=== PATIENT | male | born 1960 | race Caucasian/White ===

== ENCOUNTER 2017-05-04 09:19 | Day surgery (SDC) | payer OTHER ==
[~2017-05-04 09:19] MED LIST: BYSTOLIC10 MG PO
[2017-05-04 10:44] LABS: HEMATOCRIT 46.7 % (42.0-54.0); HEMOGLOBIN 15.9 g/dL (13.5-17.5); MCH 28.4 pg (26.0-34.0); MCV 83.5 fL (80.0-100.0); MEAN PLATELET VOLUME 10.1 fL (7.4-10.4); RBC 5.59 10x6/uL (4.20-6.10); RDW 12.7 % (11.5-14.5); WBC 6.4 10x3/uL (4.8-10.8)
[2017-05-04 11:14] VITALS: BP 160/98; BMI 29.7
--- NOTE | 2017-05-07 14:00 | OP ---
PATIENT NAME: CARL ENRIQUEZ MEDICAL RECORD: [id number] :56 LOCATION:D.OPS ADMISSION DATE: SURGEON: HERRERA BARRON MD DATE OF OPERATION: 05/04/2017 PREOPERATIVE DIAGNOSIS: Large carpeting polyp of the ascending colon, 6 cm. POSTOPERATIVE DIAGNOSES: Large carpeting polyp of the ascending colon, 6 cm, with inability to endoscopically remove the polyp in its entirety. PROCEDURES: 1. Total colonoscopy to cecum. 2. Piecemeal attempted polypectomy. 3. Ablation of most of the polyp with the argon plasma roundhouse firer/fireman. 4. Endoscopic tattooing distal to the site of the polyp. SURGEON: Herrera Barron MD CUSTOMS INVESTIGATOR: None. BLOOD LOSS: Minimal. ANESTHESIA: General. COMPLICATIONS: None. The risks, possible complications, and alternatives to the procedure were explained to the patient. He elects to proceed. OPERATIVE COURSE: The patient was conveyed to the operating room electively on 05/04/2017. General anesthesia was induced by the anesthesia staff. The patient was placed in the Borges position. A digital rectal examination was performed. Prostate was enlarged, but without nodules. The colonoscope was inserted through the anus. It was easily advanced to the cecum. The prep was excellent. I slowly withdrew the endoscope. I irrigated and aspirated extensively. The pullback was greater than a 18-minute pullback. The polyp was easily identifiable. It encompassed more than a third of the circumference of the colon. I started to perform a piecemeal polypectomy utilizing the cold endoscopic biopsy forceps. I encountered a cratered area that was very firm at the center of the polyp. This is concerning for a malignancy. I feared that if I tried to remove the entire polyp, this will have led to an endoscopic perforation. I then utilized the argon plasma roundhouse firer/fireman and ablated as much of the polyp as I could and also this was used for hemorrhage control. A right colon polyp was ablated utilizing the right colon setting on the argon plasma roundhouse firer/fireman in the forced mode. I then advanced an endoscopic sclerotherapy needle. Distal to the polyp, I injected 5 cc of Glenna ink submucosally. I then removed the sclerotherapy needle and slowly withdrew the endoscope. I irrigated and aspirated extensively. A retroflexed view was obtained in the rectum. I then unretroflexed the scope and removed it under direct vision. I will see the patient in my office in 1 week. I will plan for a segmental colectomy sometime in the near future. I have shown the endoscopic pictures to the patient's . The patient was conveyed to postanesthesia care unit where OPERATIVE REPORT [id number] CARL ENRIQUEZ he was in stable condition. TRANSINT:[id number] Voice Confirmation ID: [id number] DOCUMENT ID: [id number] HERRERA BARRON MD at 1400 CC: AMBAR GUILLEN MD and VIOLETA MACIAS MD [id number] DICTATION DATE: 05/04/17 1549 STEEL ERECTOR APPRENTICE: 05/04/17 1908 [facility] [place] 05/04/17 [id number] [place] [address]
--- NOTE | 2017-06-23 15:43 | HP ---
PATIENT: CARL ENRIQUEZ MEDICAL RECORD: [id number] ACCOUNT: [id number] LOCATION:[facility] : 56 ADMISSION DATE: 05/04/17 HISTORY AND PHYSICAL EXAMINATION CHIEF COMPLAINT: Carpeting polyp of the ascending colon. HISTORY OF PRESENT ILLNESS: The patient was referred by Dr. Hebert. The risks, possible complications, and alternatives to polypectomy utilizing argon plasma installer inspector final were explained to the patient. He elects to proceed. PAST MEDICAL AND SURGICAL HISTORY: Sleep apnea, on CPAP, hypertension, gastroesophageal reflux, knee surgery, nose surgery for deviated septum/broken nose. ALLERGIES: No known drug allergies. HOME MEDICINES: Pepcid, Valium, Tylenol as well as nebivolol. REVIEW OF SYSTEMS: Negative for CVA or seizures. Negative for diabetes or thyroid problems. PHYSICAL EXAMINATION: GENERAL: The patient does not appear acutely ill. He does not appear chronically ill. VITAL SIGNS: Reviewed. HEAD: External ears appear normal. EYES: Extraocular movements are intact. NECK: Trachea is midline. CHEST: No intercostal retractions. PULMONARY: Nonlabored, no stridor. ABDOMEN: Nontender. IMPRESSION: Large carpeting polyp of the ascending colon. PLAN: Colonoscopy. Polypectomy utilizing the argon plasma installer inspector final. TRANSINT:[id number] Voice Confirmation ID: [id number] DOCUMENT ID: [id number] HERRERA BARRON MD at 1543 CC: [id number] DICTATION DATE: 06/09/17 0839 MACHINE CHAIN MAKER: 06/09/17 0942 [facility] [place] [facility] 05/04/[address] [address]
== END 2017-05-04 16:00 | disposition home or self-care (01) ==
LOC: D.OPS 09:19 → D.PAN 12:00 → D.OPS 12:00
PROVIDERS: Anesthesiology
DX: D12.2 Benign neoplasm of ascending colon (principal); N40.0 Benign prostatic hyperplasia without lower urinary tract symptoms; Z01.812 Encounter for preprocedural laboratory examination

== ENCOUNTER 2017-06-09 06:22 | Inpatient (IN) | payer OTHER ==
[2017-06-09] VITALS (11 sets, daily range): BP systolic 128–156; BP diastolic 72–95; BMI 28.4
[~2017-06-09] VITALS: Ht 185.4 cm; Wt 97.5 kg
[2017-06-09 07:06] LABS: HEMATOCRIT 43.1 % (42.0-54.0); HEMOGLOBIN 14.6 g/dL (13.5-17.5); MCH 28.4 pg (26.0-34.0); MCHC 33.9 g/dL (31.0-37.0); MCV 83.9 fL (80.0-100.0); MEAN PLATELET VOLUME 10.1 fL (7.4-10.4); RBC 5.14 10x6/uL (4.20-6.10); RDW 12.7 % (11.5-14.5); WBC 4.5 10x3/uL (4.8-10.8)
[2017-06-10 04:00] VITALS: BP 123/76
--- NOTE | 2017-06-10 07:50 | NUR ---
PT AOX4 RESP EVEN AND NONLABORED PT DENIES NEEDS AT THIS TIME IV TO LEFT HAND PATENT AND INTACT AT THIS TIME SRX2 BED AT LOWEST SETTING CALL LIGHT WITHIN REACH WILL CONTINUE TO MONITOR
[2017-06-10 08:36] VITALS: BP 130/78
[2017-06-10 13:07] VITALS: Ht 185.4 cm; Wt 97.5 kg
[2017-06-10 14:20] VITALS: BP 127/76
[2017-06-10 16:23] VITALS: BP 135/81
[2017-06-10 20:00] VITALS: BP 141/87
--- NOTE | 2017-06-10 20:00 | NUR ---
ASSESSMENT PER FLOWSHEET. EPIDURAL IN PLACE AND IN USE WITH GOOD PAIN CONTROL. BANDAIDES TO ABDOMEN C/D/I 3 SMALL AND ONE LARGE.GREENBERG TO BEDSIDE DRAINAGE WITH YELLOW URINE. IV PATENT LEFT HAND OF NS AT 100CC'S/HR. SITE CLEAR. SCD'S ON.
--- NOTE | 2017-06-10 22:00 | NUR ---
RESTING QUIETLY DENIES NEEDS.
[2017-06-11] VITALS: BP 132/78
--- NOTE | 2017-06-11 00:10 | NUR ---
EYES CLOSED RESPIRATIONS WITH EASE AND UNLABORED.
--- NOTE | 2017-06-11 03:00 | NUR ---
RESTING QUIETLY NO CHANGES IN ASSESSMENT.
--- NOTE | 2017-06-11 06:31 | NUR ---
RESTING QUIETLY DENIES PAIN BODY IN GOOD ALIGNMENT. NO CHANGES IN ASSESSMENT
--- NOTE | 2017-06-11 07:40 | NUR ---
PATIENT RESTING IN THE BED. PATIENT IS AWAKE, ALERT, AND ORIENTED X4. AT PATIENT'S BEDSIDE. NO COMPLAINTS OF PAIN AT PRESENT TIME. IV PATENT IN LEFT HAND WITHOUT ANY S/S OF INFECTION NOTED. NS INFUSING AT 100 ML/HR. DR. BARRON STOPPED BY TO VISIT WITH PATIENT AND STATED THAT HIS EPIDURAL AND GREENBERG CATHETER CAN COME OUT TOMORROW. CALL LIGHT IN PATIENT'S REACH. PATIENT DENIES ANY NEEDS AT PRESENT TIME. WILL MONITOR PATIENT FOR ANY NEEDS.
[2017-06-11 09:07] VITALS: BP 139/83
--- NOTE | 2017-06-11 10:20 | NUR ---
PATIENT RESTING IN THE BED. AT PATIENT'S BEDSIDE. NEW ORDER RECEIVED AND SCHEDULED BYSTOLIC 10 MG PO GIVEN TO PATIENT WITH SIP OF WATER. PATIENT TOLERATED WELL AND DENIES ANY FURTHER NEEDS. CALL LIGHT IN PATIENT'S REACH. WILL MONITOR PATIENT FOR ANY NEEDS.
[2017-06-11 12:51] VITALS: BP 161/92
[2017-06-11 17:07] VITALS: BP 155/88
[2017-06-11 20:00] VITALS: BP 161/89
--- NOTE | 2017-06-11 20:00 | NUR ---
ASSESSMENT PER FLOWSHEET. IV PATENT LEFT HAND OF NS AT 100CC'S/HR. SITE CLEAR. GREENBERG TO BEDSIDE DRAINAGE WITH YELLOW URINE EPIDURAL IN PLACE WITH GOOD PAIN CONTROL. ABDOMEN WITH 3 SMALL LAP INCISIONS AND ONE LARGE BANDAIDE TO RT ABDOMEN. C/D/I. SCD'S ON AT BEDSIDE. DENIES NEEDS.
--- NOTE | 2017-06-11 22:00 | NUR ---
EYES CLOSED RESPIRATIONS WITH EASE AND UNLABORED.SR UP X2 CALL LIGHT WITHIN REACH.
[2017-06-12] VITALS: BP 150/83
--- NOTE | 2017-06-12 | NUR ---
RESTING QUIETLY MONITORING EPIDURAL CHECKS.
--- NOTE | 2017-06-12 02:00 | NUR ---
EYES CLOSED RESPIRATIONS WITH EASE AND UNLABORED. DENIES PAIN OR DISCOMFORT.
[2017-06-12 04:00] VITALS: BP 132/77
--- NOTE | 2017-06-12 04:15 | NUR ---
RESTING QUIETLY DENIES NEEDS
--- NOTE | 2017-06-12 06:49 | NUR ---
HERE AT BEDSIDE NO CHANGES IN ASSESSMENT.
--- NOTE | 2017-06-12 08:19 | NUR ---
AWAKE AND ALERT. ORIENTED X3. NO C/O AT THIS TIME. LUNGS ARE CLEAR BIALTERALLY, REPORTS USING IS INSTRUCTED. SKIN IS INTACT WITHOUT REDNESS EXCEPT INCISION TO ABDOMEN WITH 4 SMALL INSERTION SITES AND INCISION TO RIGHT SIDE OF ABDOMEN ALL WITH DRY INTACT DRESSINGS. IV TO LEFT HAND PATENT WITHOUT REDNESS AT INSERTION SITE. GREENBERG PATENT WITH CLEAR YELLOW URINE. SCD'S IN PLACE. AT BEDSIDE. DENIES NEEDS. HAD POPSICLE WITHOUT NAUSEA OR INCREASDED PAIN.
[2017-06-12 08:48] VITALS: BP 147/83
--- NOTE | 2017-06-12 10:00 | NUR ---
ATE A POPSICLE WITHOUT COMPLICATIONS. EPIDURAL STILL IN PLACE.
--- NOTE | 2017-06-12 12:30 | NUR ---
CLEAR LIQUID TRAY SERVED IN ROOM. DENIES NEEDS.
--- NOTE | 2017-06-12 12:47 | NUR ---
NUTRITION F/U CHART REVIEWED, PT VISIT. TOLERATING CLEAR LIQUID DIET, AAT TO FULL LIQUIDS. WILL PROVIDE FULL LIQUIDS APPROPRIATE. RD FOLLOWING
[2017-06-12 13:11] VITALS: BP 145/81
--- NOTE | 2017-06-12 14:11 | NUR ---
Patient Name: CARL ENRIQUEZ Admission Status: Elective Accout number: [id number] Admission Date: 06-09-2017 : 1960 Admission Diagnosis:POLYP OF COLON Attending: HERRERA BARRON Current LOS: 3 Anticipated DC Date: Planned Disposition: Home Primary Insurance: [facility] Discharge Planning Comments: CM met with patient and (Lisa) to assess discharge planning needs. Patient is independent with care at home. He does not have any stairs in his house. He wears a CPAP machine. CM will continue to follow and assist with any discharge planning needs. Patient does not think he will need any services when he is ready for discharge PCP: Saad Cota Lisa () [phone] Finance Mgr: Blanca Manriquez * Is the patient Alert and Oriented? Yes 0 * How many steps to enter\exit or inside your home? 0 0 * PCP Saad 0 * Pharmacy [facility] 0 * Preadmission Environment Home with Family 0 * ADLs Independent 0 * Equipment CPAP 0 * List name and contact numbers for known caregivers / representatives who currently or will assist patient after discharge: Lisa () [phone] 0 * Community resources currently utilized None 0 * Additional services required to return to the preadmission environment? Yes 0 * Can the patient safely return to the preadmission environment? Yes 0 * Has this patient been hospitalized within the prior 30 days at any hospital? No 0 Grand Total: 0
--- NOTE | 2017-06-12 14:30 | NUR ---
ATE ABOUT HALF OF CLEAR LIQUID TRAY WITHOUT ADVERSE EFFECT. DENIES NEEDS.
--- NOTE | 2017-06-12 14:50 | NUR ---
RETURNED FROM KYPHOPLASTY. AROUSES TO VERBAL STIMULATION. DRESSING TO LOWER BACK DRY AND INTACT.
[2017-06-12 16:21] VITALS: BP 160/88
--- NOTE | 2017-06-12 16:38 | NUR ---
REPORTED SMALL AMOUNT OF SEMI FORMED STOOL.
--- NOTE | 2017-06-12 18:40 | NUR ---
ATE ALMOST ALL OF CLEAR LIQUID SUPPER TRAY. DENIES NEEDS. NO CHANGES NOTED.
--- NOTE | 2017-06-12 19:42 | NUR ---
DILADID SENIOR CONSTRUCTION MANAGER BOLUS FOR BREAK TROUGH PAIN, IVF NS 0.9% DECREASED TO 50mL/HR WITH BP 180/101. WILL CONTINUE TO MONITOR.
[2017-06-12 20:00] VITALS: BP 128/108
--- NOTE | 2017-06-12 22:19 | NUR ---
ATTEMPTED TO NOTIFY GROUND OPERATIONS SUPERVISOR 4 TIMES TO NOTIFY HER OF A PAGE BEING PUT TO THE ON-CALL SURGEON FOR HYPERTENSION. MANUAL BP 184/106. PAGE [address] FOR THE SURGEON TURNER OFF.
--- NOTE | 2017-06-12 23:32 | NUR ---
SECOND PAGE PUT INTO SURGERY ANSWERING SERVICE
[2017-06-13] VITALS: BP 163/93
--- NOTE | 2017-06-13 02:53 | NUR ---
RN NOTE: PT RESTING IN SUPIME POSITION WITH EYES CLOSED. IV IN LEFT HAND PATENT WITH NS INFUSING AT 100 ML / HR. RADIOLOGIST PHYSICIAN / DILAUDID IN USE FOR PAIN CONTROL. SCD'S IN PLACE OF BLE. WILL CONTINUE TO MONITOR FOR NEEDS.
--- NOTE | 2017-06-13 05:55 | NUR ---
GREENBERG CATH D/C WITH CATH INTACT. PATIENT COMPLAINING OF CONSTIPATION
[2017-06-13 06:22] LABS: BASOPHILS 0.3 % (0-2); EOSINOPHILS 2.3 % (0-7); HEMATOCRIT 39.6 % (42.0-54.0); HEMOGLOBIN 13.6 g/dL (13.5-17.5); IMMATURE GRANULOCYTES 0.5 % (0-5); LYMPHOCYTES 8.1 % (15-50); MCH 28.5 pg (26.0-34.0); MCHC 34.3 g/dL (31.0-37.0); MEAN PLATELET VOLUME 10.1 fL (7.4-10.4); MONOCYTES 13.4 % (2-11); NEUTROPHILS 75.4 % (40-80); PLATELET COUNT 163 10x3/uL (130-400); RBC 4.77 10x6/uL (4.20-6.10); RDW 12.7 % (11.5-14.5); WBC 6.1 10x3/uL (4.8-10.8)
[2017-06-13 06:34] LABS: CALC OSMOLALITY 280 mosm/kg (275-300); CALCIUM 8.6 mg/dL (8.5-10.1); CARBON DIOXIDE 25.4 mmol/L (21.0-32.0); CHLORIDE - SERUM 105 mmol/L (98-107); CREATININE - SERUM 0.8 mg/dL (0.6-1.3); GLUCOSE 131 mg/dL (74-106); POTASSIUM - SERUM 3.4 mmol/L (3.5-5.1); SODIUM 141 mmol/L (136-145); UREA NITROGEN 7 mg/dL (7-18); eGFR NON AFRICAN AMERICAN > 90 mL/min (90-120)
--- NOTE | 2017-06-13 09:26 | NUR ---
AWAKE AND ALERT. ORIENTED X3. NO C/O AT THIS TIME. REPORTS PAIN MUCH WORSE SINCE EPIDURAL REMOVED. VOIDED 150CC IN URINAL THIS AM. LUNGS ARE CLEAR BILATERALLY, NO COUGH NOTED. REPORTS USING IS INSTRUCTED. SKIN IS INTACT WITHOUT REDNESS EXCEPT INCISION TO RIGHT SIDE OF ABDOMEN HAS DRY INTACT DRESSING IN PLACE. LARGE FLUID FILLED BLISTER NOTED TO OUTER EDGE OF DRESSING. 3 SMALL LAP SITES PATENT WITHOUT REDNESS. IV TO LEFT HAND IS PATNET WITHOUT REDNESS AT INSERTION SITE. FAMILY AT BEDSIDE.
[2017-06-13 09:38] VITALS: BP 140/71
[2017-06-13 09:43] VITALS: BP 172/94
--- NOTE | 2017-06-13 09:45 | NUR ---
UP TO CHAIR AT BEDSIDE PER PT. NO C/O WITH TRANSFER.
--- NOTE | 2017-06-13 12:54 | NUR ---
GIVEN BED BATH PER STAFF, LINENS CHANGED. REPOSITIONED IN BED FOR COMFORT. IV TO LEFT HAND SLLIGHTLY REDDENED. D/C WITH CATHETER INTACT. RESITED TO RIGHT FOREARM AFTER ONE ATTEMPT WITH 20G.
[2017-06-13 13:41] VITALS: BP 186/100
[2017-06-13 15:51] VITALS: BP 184/93
--- NOTE | 2017-06-13 18:10 | NUR ---
ATE REAL FOOD FOR SUPPER. MASHED POTATOES FROM HOME. REQUESTED AND GIVNE ONE HYDROCODONE PO FOR ABDOMINAL PAIN LEVEL 2. WILL MONITOR. NO CHANGES NOTED.
--- NOTE | 2017-06-13 19:22 | NUR ---
PATIENT COMFORTABLY LAYING IN BED WITH NO COMPLAINTS. GUESTS AT BEDSIDE. PIV IS SALINE LOCKED. NO NEEDS NOTED AT THIS TIME.
[2017-06-13 20:00] VITALS: BP 178/90
[2017-06-14] VITALS: BP 152/81
--- NOTE | 2017-06-14 03:38 | NUR ---
RN NOTE: PT RESTING QUIETLY IN LOW FRYE'S POSITION. IV IN RIGHT FA SALINE LOCKED. WILL CONTINUE TO MONITOR FOR NEEDS. CALL LIGHT WITHIN REACH.
--- NOTE | 2017-06-14 03:40 | NUR ---
NORCO GIVEN TO MAINTAIN PAIN CONTROL. PAIN LEVEL WAS 3-4.
[2017-06-14 04:00] VITALS: BP 162/90
--- NOTE | 2017-06-14 07:30 | NUR ---
UP IN CHAIR AT BEDSIDE. AWAKE AND ALERT. ORIENTED X3. REQUESTED AND GIVEN ONE HYDROCODONE PO FOR C/O ABDOMINAL PAIN LEVEL 3. WILL MONITOR. SKIN IS INTACT WITHOUT REDNESS EXCEPT INCISION TO RIGHT ABDOMEN WHICH IS CLEAN AND DRY. BLISTER AREA IS HEALING WITHOUT SIGNS OF INFECTION. SL TO RIGHT FOREARM IS PATNET WITHOUT REDNESS AT INSERTION SITE. ENCOURAGED TO USE IS WA. AT BEDSIDE. DENIES NEEDS.
[2017-06-14 08:20] VITALS: BP 170/90
[2017-06-14] MEDS ORDERED: HYDROCODON-ACE1 EAC7 PO (08:39)
--- NOTE | 2017-06-14 09:52 | NUR ---
REPORTS PAIN ALMOST GONE. NO FURTHER C/O HEADACHE. D/C ORDERS RECEIVED.
--- NOTE | 2017-06-14 10:45 | NUR ---
DISCHARGED TO HOME WITH AMBULATORY. DISCHARGE INSTRUCTIONS GIVEN BOTH VERBALLY AND WRITTEN. ALL QUESTIONS ANSWERED. PATIENT AND VERBALIZED UNDERSTANDING OF SAME. NEEDED PRESCRIPTIONS GIVEN TO PATIENT. SL TO RIGHT FOREARM D/C WITH CATHETER INTACT. ALL BELONGINGS WITH PATIENT.
--- NOTE | 2017-06-23 15:43 | OP ---
PATIENT NAME: CARL ENRIQUEZ MEDICAL RECORD: [id number] :56 LOCATION:D.MS [id number] ADMISSION DATE:06/09/17 SURGEON: HERRERA BARRON MD DATE OF OPERATION: 06/09/2017 PREOPERATIVE DIAGNOSIS. Endoscopically unresectable right colon polyp. POSTOPERATIVE DIAGNOSIS: Endoscopically unresectable right colon polyp. PROCEDURE: Laparoscopic hand-assisted right hemicolectomy. SURGEON: Herrera Barron MD COSTUME SPECIALIST: None. BLOOD LOSS: 150 cc. ANESTHESIA: General. COMPLICATIONS: None. The risks, possible complications and alternatives to the procedure were explained to the patient. He elects to proceed. OPERATIVE COURSE: The patient was conveyed to the operating room electively on 06/09/2017. General anesthesia was induced by the anesthesia staff. The abdomen was sterilely prepped and draped. A small skin buddy was accomplished in the left upper quadrant. A Veress needle was inserted through the skin buddy into the peritoneal cavity. CO2 insufflation was begun. Once a sufficient pneumoperitoneum had been achieved, a 5-mm trocar was inserted through an incision at the umbilicus. Under direct internal vision utilizing the television camera, a 5-mm trocar was inserted through an incision in the epigastrium. Another 5-mm trocar was inserted through an incision in the suprapubic area. During insertion of the Veress needle and all trocars, there appeared to have been no injury to the bowels, any intraperitoneal or retroperitoneal structures. The patient was tilted to the left. I incised along the right white line of Toldt. I mobilized the right colon. I took down the retroperitoneal attachments at the hepatic flexure. I rolled the hepatic flexure medially and inferiorly. I chose the point for insertion of my GelPort. A transverse incision was accomplished between the right costal margin and the anterior superior iliac spine. I incised down through skin and subcutaneous tissues. The external oblique aponeurosis was then opened along the direction of its fibers. The internal oblique was opened along the direction of its fibers. I divided the transversus abdominis muscles. Stay sutures were placed on the peritoneum. I incised the peritoneum. The Altaf retractor was placed with a GelPort. I was able to remove the top of GelPort. I worked through the Altaf retractor. I was able to deliver the right colon. The ureter was retracted for protection. The duodenum was retracted for protection. I chose the proximal extent of my resection which was just proximal to the fold OPERATIVE REPORT [id number] CARL ENRIQUEZ of [facility]. I stapled across the ileum here with a CHRIS-75 stapler. I chose the distal extent of my resection to be the proximal transverse colon. A window was created in the mesocolon. I stapled across the colon here with a CHRIS-75 stapler. The interposed mesentery was taken down with the EnSeal device. I then oversewed a portion of this division with a running looped #1 PDS for additional hemostasis. The small bowel and the transverse colon were brought into apposition side by side. A small enterotomy and small colotomy were accomplished. Anvils of the CHRIS-75 stapler were advanced. I then fired the stapler. The resulting intracolonic defect was closed with a single firing of the TA 60 stapler. I oversewed the staple line with multiple interrupted horizontal mattress 3-0 Vicryl sutures. The mesenteric defect was closed with a running #1 Vicryl. I irrigated and aspirated the right upper quadrant. There was no bleeding. The peritoneum was approximated with running #1 Vicryls. The transversus abdominis and internal oblique muscle layers were closed with running #1 Vicryls. The external oblique muscle was closed with running #1 Vicryls. The deep adipose tissue was closed with interrupted 3-0 Vicryls. The subcutaneous adipose tissue was closed with interrupted 3-0 Vicryls. The skin was approximated with a running intracuticular 3-0 Vicryl. The skin at the umbilical trocar site was closed with a single 3-0 Vicryl Rapide suture. The other 2 trocar sites were closed with intracuticular 3-0 Vicryls. Benzoin and Steri-Strips were applied. The patient was then extubated and conveyed to post-anesthesia care unit where he was in stable condition. TRANSINT:[id number] Voice Confirmation ID: [id number] DOCUMENT ID: [id number] HERRERA BARRON MD at 1541 CC: KRISTIE GALVEZ MD, AMBAR GUILLEN MD and VIOLETA MACIAS [id number] DICTATION DATE: 06/09/17 1208 DOCKET SPECIALIST: 06/09/17 1320 DIS IN 06/14/17 1910 [facility] [place], [facility]901
--- NOTE | 2017-06-23 15:43 | HP ---
PATIENT: CARL ENRIQUEZ MEDICAL RECORD: [id number] ACCOUNT: [id number] LOCATION:D.MS Ho : 56 ADMISSION DATE: 06/09/17 HISTORY AND PHYSICAL EXAMINATION CHIEF COMPLAINT: Colon polyp. HISTORY OF PRESENT ILLNESS: The patient had a colon polyp/mass that was endoscopically un-retrievable. This was a tubulovillous adenoma with focal low-grade atypia. This was a 6-cm polyp. The patient underwent attempted polypectomy. This is a large carpeting polyp. The attempted polypectomy was performed on 05/04/2017. The polyp will be difficult to feel operatively and for that reason, I tattooed distal to the site of the polyp. The patient now presents for a hand-assisted laparoscopic right colectomy. Possible open procedure. The risks, possible complications, and alternatives to procedure were explained to the patient. He elects to proceed. The patient had an epidural catheter placed for postoperative pain relief. HOME MEDICATIONS: Bystolic. ALLERGIES: No known drug allergies. PAST MEDICAL AND SURGICAL HISTORY: Sleep apnea, on CPAP; hypertension; history of colon polyps. REVIEW OF SYSTEMS: Negative for CVA or seizures. Negative for diabetes or thyroid problems. Negative for renal disease or hepatitis. SOCIAL HISTORY: Nonsmoker. PHYSICAL EXAMINATION: GENERAL: The patient does not appear acutely ill. He does not appear chronically ill. VITAL SIGNS: Reviewed. HEAD: External ears appear normal. EYES: Extraocular movements are intact. NECK: Trachea is midline. CHEST: No intercostal retractions. PULMONARY: Nonlabored, no stridor. ABDOMEN: Nontender. IMPRESSION: Endoscopically unresectable ascending colon polyp which has been tattooed, this was a tubulovillous adenoma with low-grade atypia. PLAN: Laparoscopic hand-assisted right hemicolectomy. TRANSINT:[id number] Voice Confirmation ID: [id number] DOCUMENT ID: [id number] HISTORY AND PHYSICAL [id number] CARL ENRIQUEZ, HERRERA BARCLAY at 1543 CC: KRISTIE GALVEZ MD and AMBAR GUILLEN MD [id number] DICTATION DATE: 06/09/17921 TENONER OPERATOR: 06/09/1748 DIS IN 06/14/17 [id number] [place] [address]
--- NOTE | 2017-08-13 09:38 | DS ---
PATIENT:CARL ENRIQUEZ :56 MEDICAL RECORD: [id number] DISCHARGE SUMMARY ADMISSION DATE: 06/09/17 DISCHARGE DATE: 06/14/17 PRINCIPAL DIAGNOSES: Endoscopically unresectable right colon polyp, which on pathology was a tubulovillous adenoma of the ascending colon. There was no invasive neoplasm. PRINCIPAL PROCEDURE: Laparoscopic hand-assisted right hemicolectomy. OTHER DIAGNOSES: Include sleep apnea, hypertension. HOSPITAL COURSE: The patient was to undergo the above operative procedure. He underwent the above operative procedure. Postoperatively, his pain was controlled. An epidural catheter had been placed. It was removed. The patient began ambulating. He tolerated the diet. He was switched to oral analgesia. The patient was then dismissed home. He is going to follow up with me in the office. TRANSINT:[id number] Voice Confirmation ID: [id number] DOCUMENT ID: [id number] HERRERA BARRON MD at 0938 CC: KRISTIE GALVEZ MD, AMBAR GUILLEN MD and VIOLETA MACIAS [id number] DICTATION DATE: 07/30/17 1219 ACTIVITY THERAPY SPECIALIST: 07/30/17 1620 DIS IN 06/14/17 [facility] [address] [place] [address]
== END 2017-06-14 10:45 | disposition home or self-care (01) | DRG 331 ==
LOC: D.SDCHOLD 06:22 → D.MS 06:22 → D.SDCHOLD 08:45 → D.MS 12:21
PROVIDERS: Anesthesiology; Surgery; ADMIT Surgery
PROC: 0DTF0ZZ Resection of Right Large Intestine, Open Approach (ICD-10-PCS; principal; 2017-06-09 08:45)
DX: K63.5 Polyp of colon (principal); I10 Essential (primary) hypertension; G47.30 Sleep apnea, unspecified